=== PATIENT | male | born 1960 | race Caucasian/White ===

== ENCOUNTER → 2017-05-22 | Outpatient (CLI) | payer OTHER ==
[~2017-05-22] MED LIST: ASACOL HD; ASACOL HD800 M1 PO; ENTOCORT EC3 MG PO; FLOMAX 0.4MG C0.4 MG PO; IMURAN50 MG PO; LISINOPRIL 5MG T5 MG PO; LISINOPRIL40 MG; LORTAB 5/500 501 TAB PO; LOSARTAN POTAS100 MG PO; MEDROL 4MG. DOSE4 MG PO; METFORMIN 500M500 M1 PO; NORCO 325 MG-51 TAB PO; PERCOCET 325 MG1 TA3 PO; PERCOCET 5/3251 EACH PO; ZANTAC 300300 M1 PO
--- NOTE | 2017-05-22 16:43 | RADIOLOGY REPORT PS360 ---
US [id number] HISTORY: Right-sided flank pain with hematuria RENAL STONE ORDERING PHYSICIAN: Desirae Moreira MD PATIENT AGE: 57 years COMPARISON: None FINDINGS: RIGHT KIDNEY:Unremarkable. Normal size and echogenicity. No hydronephrosis The right kidney measures 11 x 5.5 x 7 cm LEFT KIDNEY: No hydronephrosis. Left kidney measures 12 x 6 x 6 cm with a few flecks of hyperechogenicity which could be due to nonobstructing calculi. There is a 12 mm cyst in the upper pole the left kidney. OTHER FINDINGS: No other pertinent findings IMPRESSION: 1. No hydronephrosis. 2. Possible left nephrolithiasis. 3. 12 mm left renal cyst
== END ==
LOC: RAD 07:55
DX: N20.0 Calculus of kidney (principal)

== ENCOUNTER 2017-05-26 15:57 | Emergency (ER) | payer OTHER ==
[~2017-05-26] VITALS: Ht 177.8 cm; Wt 90.7 kg
[~2017-05-26 15:57] MED LIST changes: -ASACOL HD; -LISINOPRIL40 MG; -NORCO 325 MG-51 TAB PO
[2017-05-26 16:13] LABS: URINE BILIRUBIN - DIPSTICK NEGATIVE (NEG); URINE BLOOD 3+ (NEG)
--- OUTSIDE RECORDS SUMMARY | 2017-05-26 16:15 | External Medical Summary Rpt | CCD ---
Author Author , TROY Organization [employer] Address Unknown Phone [email or web address] Care Team Providers Care Drying Can Worker Name Role Phone Keshia Moreira MD, Unavailable Unavailable Keshia Larry MD, Unavailable Unavailable Karla Tomlinson MD, Unavailable Unavailable Alfred Tomlinson MD Purpose Continuity of Care Document - 11-29-2012 through 2016 Problems Code Diagnosis DOS Provider Status 401.9 401.9 07-22-2013 [place] HYPERTENSIO [facility] N NOS Hospital 555.9 555.9 07-22-2013 [facility] ENTERITIS [facility] NOS 786.59 786.59 07-22-2013 [place] CHEST PAIN [facility] 788.0 788.0 RENAL 12-01-2012 [place] COLIC [facility] 592.0 592.0 11-29-2012 [place] CALCULUS OF [facility] 724.2 Allergies, Adverse Reactions, Alerts Type Drug Allergy Adverse Reaction to Substance Substance Reaction Severity Penicillin Unknown Unknown Medications Na ND Rx Da Fi Fi Am Da Di Ph RX Ph St me C No te ll ll ou ys ag ar # ys at rm s nt no ma ic us Or Da si cy ia de te s n re d 66 01 0 No PI 55 -2 RI 30 9- Lo N 00 20 ng 32 10 14 er 5 1 MG Ac ti TA ve BL ET Sa 63 01 0 No li 80 -2 ne 70 8- Lo 10 20 ng Fl 07 14 er us 5 h Ac 10 ti ML ve Sy ri ng e NI 00 01 0 No TR 07 -2 OS 10 8- Lo TA 41 20 ng T 81 14 er 0. 3 4 Ac MG ti ve TA BL ET SL Ib 62 01 0 No up 58 -2 ro 40 8- Lo fe 74 20 ng n 60 14 er 40 1 0M Ac G ti Ta ve bl et PA 01 1 No TI -2 EN 8- Lo T' 20 ng S 14 er OW N Ac HO ti ME ve ME DS TE 51 01 1 No MA 07 -2 ZE 90 8- Lo PA 41 20 ng M 92 14 er 30 0 Ac MG ti ve CA PS UL E KE 00 06 0 No TO 40 -1 RO 93 0- Lo LA 79 20 ng C 60 13 er 60 1 Ac MG ti /2 ve ML AL SO 00 06 0 No DI 40 -0 UM 97 8- Lo 98 20 ng CH 30 13 er LO 9 RI Ac DE ti ve 0. 9% SO ALMA TI ON Mo 00 06 0 No rp 40 -0 hi 91 8- Lo ne 25 20 ng 83 13 er 4M 0 G/ Ac Ml ti ve Sy ri ng e ON 00 06 0 No DA 64 -0 NS 16 8- Lo ET 08 20 ng RO 02 13 er N 5 HC Ac L ti 4 ve MG /2 ML AL Sa 63 06 0 No li 80 -0 ne 70 8- Lo 10 20 ng Fl 07 13 er us 5 h Ac 10 ti ML ve Sy ri ng e OX 00 06 0 No YC 40 -0 OD 60 8- Lo ON 51 20 ng E- 26 13 er AC 2 ET Ac AM ti IN ve OP HE N 5- 32 5 TA 51 06 0 No MS 07 -0 UL 90 8- Lo OS 29 20 ng IN 42 13 er 0 HC Ac L ti 0. ve 4 MG CA PS UL E Vital Signs 07-22-2013 11:30 Name Value Interpretat Reference Comment ion Range Body 98.3 [degF] Temperature BP 96 mm[Hg] Diastolic BP Systolic 157 mm[Hg] Heart 92 /min Rate/Pulse Respiratory 18 /min Rate 07-22-2013 08:00 Name Value Interpretat Reference Comment ion Range O2% 97 % 07-21-2013 16:17 Name Value Interpretat Reference Comment ion Range Height 177.80 cm Weight 92.080 kg Measured 07-21-2013 13:09 Name Value Interpretat Reference Comment ion Range Body 98.8 [degF] Temperature BP 65 mm[Hg] Diastolic BP Systolic 169 mm[Hg] Heart 100 /min Rate/Pulse O2% 98 % Respiratory 20 /min Rate Weight 0 [oz_av] Measured 12-01-2012 09:34 Name Value Interpretat Reference Comment ion Range Body 98.5 [degF] Temperature BP 84 mm[Hg] Diastolic BP Systolic 128 mm[Hg] Heart 93 /min Rate/Pulse O2% 97 % Respiratory 20 /min Rate 12-01-2012 09:28 Name Value Interpretat Reference Comment ion Range BP 91 mm[Hg] Diastolic BP Systolic 128 mm[Hg] Heart 96 /min Rate/Pulse O2% 97 % Respiratory 20 /min Rate 11-29-2012 16:36 Name Value Interpretat Reference Comment ion Range BP 78 mm[Hg] Diastolic BP Systolic 127 mm[Hg] Heart 81 /min Rate/Pulse O2% 98 % Respiratory 16 /min Rate 11-29-2012 15:23 Name Value Interpretat Reference Comment ion Range Body 98.0 [degF] Temperature 11-29-2012 14:47 Name Value Interpretat Reference Comment ion Range Body 98.0 [degF] Temperature BP 88 mm[Hg] Diastolic BP Systolic 131 mm[Hg] Heart 106 /min Rate/Pulse O2% 99 % Respiratory 16 /min Rate Results Labs Lab Lab Date Result Refere Interp Status Commen Order Detail nces retati t Range on BASIC METABOLIC PANEL (07-22-2013 06:15) Glucose 114 74-106 complet 014 mg/dL ed Bld-mCn 06:15 c BUN 15 7-18 complet Bld-mCn 014 mg/dL ed c 06:15 Creat 0.9 0.8-1.3 complet SerPl-m 014 mg/dL ed Cnc 06:15 Creat 121 50-200 complet Cl 014 ML/MIN ed predict 06:15 ed SerPl C-G-vRa te GFR/BSA 88 Greater complet .pred 014 ML/MIN than ed SerPl 06:15 60 Schwart z-vRate Sodium 139 136-145 complet SerPl-s 014 mmoL/L ed Cnc 06:15 Potassi 4.2 3.5-5.1 complet um 014 mmoL/L ed SerPl-s 06:15 Cnc Chlorid 104 98-107 complet e 014 mmoL/L ed SerPl-s 06:15 Cnc CO2 31 21.0-32 complet SerPl-s 014 mmoL/L .0 ed Cnc 06:15 Calcium 8.6 8.5-10. complet 014 mg/dL 1 ed SerPl-m 06:15 Cnc CBC with AUTO DIFF (07-22-2013 06:15) WBC # 07-22-2 5.8 4.8-10. complet Bld 014 K/MM3 8 ed Auto 06:15 RBC # 07-22-2 5.14 4.6-6.2 complet Bld 014 M/mm3 ed Auto 06:15 Hgb 15.4 14.1-18 complet Bld-mCn 014 g/dL .0 ed c 06:15 Hct Fr 44.6 % 42.0-52 complet Bld 014 .0 ed 06:15 MCV RBC 86.8 fl 82.2-97 complet 014 .8 ed 06:15 MCH RBC 29.9 pg 27-31.2 complet Qn 014 ed Auto 06:15 MEAN 34.4 31.8-35 complet CORPUSC 014 g/dl .4 ed ULAR 06:15 HGB CONC RDW RBC 13.7 % 11.5-17 complet Auto 014 .5 ed 06:15 Platele 252 142-424 complet t Bld 014 K/mm3 ed Ql 06:15 Manual MEAN 7.7 fl 7.4-10. complet PLATELE 014 4 ed T 06:15 VOLUME Granulo 73.8 % 37.0-80 complet cytes 014 .0 ed Fr Bld 06:15 Auto LYMPH % 16.3 % 10-50 complet 014 ed 06:15 Monocyt 6.7 % 1.7-9.3 complet es Fr 014 ed Bld 06:15 Auto Eosinop 2 2.6 % 0.1-12. complet hil Fr 014 0 ed Bld 06:15 Auto Basophi 07-22-2 0.7 % 0.1-2.0 complet ls Fr 014 ed Bld 06:15 Auto Granulo 07-22-2 4.3 1.3-8.0 complet cytes # 014 K/mm3 ed Bld 06:15 Auto Lymphoc 07-22-2 0.9 0.7-4.5 complet ytes Fr 014 K/mm3 ed Bld 06:15 Auto Monocyt 0.4 0.1-1.0 complet es # 014 K/mm3 ed Bld 06:15 Auto Eosinop 0.2 0.0-0.4 complet hil # 014 K/mm3 ed Bld 06:15 Auto Basophi 0.0 0-0.2 complet ls # 014 K/MM3 ed Bld 06:15 Auto GLYCOHEMOGLOBIN (A1c) (07-22-2013 06:15) HEMOGLO 6.3 % 0.0-7.0 complet BIN A1C 014 ed 06:15 TROPONIN I (07-21-2013 21:50) TROPONI Less 0.00-0. complet N I 014 than 06 ed 21:50 0.02 ng/mL URINALYSIS/COMPLETE (07-21-2013 14:12) URINE YELLOW YELLOW complet COLOR 014 ed 14:12 URINE Clear CLEAR complet APPEARA 014 ed NCE 14:12 URINE TRACE NEG complet GLUCOSE 014 ed - 14:12 DIPSTIC K URINE NEGATIV NEG complet BILIRUB 014 E ed IN - 14:12 DIPSTIC K URINE NEGATIV NEG complet KETONE 014 E mg/dL ed 14:12 URINE 1.015 1.005-1 complet SPECIFI 014 UNK .030 ed C 14:12 GRAVITY URINE NEGATIV NEG complet BLOOD 014 E ed 14:12 URINE 7.0 UNK 5.0-8.5 complet PH 014 ed 14:12 URINE NEGATIV NEG complet PROTEIN 014 E mg/dL ed - 14:12 DIPSTIC K URINE 0.2 NEG complet UROBILI 014 E.U./dL ed NOGEN - 14:12 DIPSTIC K URINE NEGATIV NEG complet NITRATE 014 E ed - 14:12 DIPSTIC K URINE NEGATIV NEG complet LEUK 014 E ed ESTERAS 14:12 E URINE OCC 0 complet RBC 014 rbc/hpf ed 14:12 URINE OCC O complet WBC 014 wbc/hpf ed 14:12 URINE TRACE O complet BACTERI 014 ed A 14:12 COMPREHENSIVE METABOLIC PANEL (07-21-2013 14:00) Glucose 155 74-106 complet 014 mg/dL ed Bld-mCn 14:00 c BUN 14 7-18 complet Bld-mCn 014 mg/dL ed c 14:00 Creat 1.0 0.8-1.3 complet SerPl-m 014 mg/dL ed Cnc 14:00 Creat 107 50-200 complet Cl 014 ML/MIN ed predict 14:00 ed SerPl C-G-vRa te GFR/BSA 78 Greater complet .pred 014 ML/MIN than ed SerPl 14:00 60 Schwart z-vRate Sodium 139 136-145 complet SerPl-s 014 mmoL/L ed Cnc 14:00 Potassi 3.7 3.5-5.1 complet um 014 mmoL/L ed SerPl-s 14:00 Cnc Chlorid 104 98-107 complet e 014 mmoL/L ed SerPl-s 14:00 Cnc CO2 27 21.0-32 complet SerPl-s 014 mmoL/L .0 ed Cnc 14:00 Calcium 8.9 8.5-10. complet 014 mg/dL 1 ed SerPl-m 14:00 Cnc Prot 7.2 6.4-8.2 complet SerPl-m 014 gm/dL ed Cnc 14:00 Albumin 3.9 3.4-5.0 complet 014 gm/dL ed SerPl-m 14:00 Cnc Globuli 3.3 1.3-3.2 complet n 014 gm/dL ed Ser-mCn 14:00 c Albumin 1.2 UNK 1.1-1.8 complet /Glob 014 ed SerPl-m 14:00 Rto Bilirub 0.7 0.2-1.0 complet 014 mg/dL ed SerPl-m 14:00 Cnc AST 19 U/L 15-37 complet SerPl-c 014 ed Cnc 14:00 ALT 45 U/L 12-78 complet SerPl-c 014 ed Cnc 14:00 ALP 90 U/L 50-136 complet SerPl-c 014 ed Cnc 14:00 CBC with AUTO DIFF (07-21-2013 14:00) WBC # 07-21-2 6.7 4.8-10. complet Bld 014 K/MM3 8 ed Auto 14:00 RBC # 07-21- 5.10 4.6-6.2 complet Bld 014 M/mm3 ed Auto 14:00 Hgb 15.1 14.1-18 complet Bld-mCn 014 g/dL .0 ed c 14:00 Hct Fr 43.6 % 42.0-52 complet Bld 014 .0 ed 14:00 MCV RBC 85.5 fl 82.2-97 complet 014 .8 ed 14:00 MCH RBC 29.7 pg 27-31.2 complet Qn 014 ed Auto 14:00 MEAN 34.7 31.8-35 complet CORPUSC 014 g/dl .4 ed ULAR 14:00 HGB CONC RDW RBC 13.7 % 11.5-17 complet Auto 014 .5 ed 14:00 Platele 250 142-424 complet t Bld 014 K/mm3 ed Ql 14:00 Manual MEAN 7.5 fl 7.4-10. complet PLATELE 014 4 ed T 14:00 VOLUME Granulo 84.3 % 37.0-80 complet cytes 014 .0 ed Fr Bld 14:00 Auto LYMPH % 10.2 % 10-50 complet 014 ed 14:00 Monocyt 3.4 % 1.7-9.3 complet es Fr 014 ed Bld 14:00 Auto Eosinop 1.6 % 0.1-12. complet hil Fr 014 0 ed Bld 14:00 Auto Basophi 0.6 % 0.1-2.0 complet ls Fr 014 ed Bld 14:00 Auto Granulo 5.6 1.3-8.0 complet cytes # 014 K/mm3 ed Bld 14:00 Auto Lymphoc 07-21-2 0.7 0.7-4.5 complet ytes Fr 014 K/mm3 ed Bld 14:00 Auto Monocyt 07-21-2 0.2 0.1-1.0 complet es # 014 K/mm3 ed Bld 14:00 Auto Eosinop 2 0.1 0.0-0.4 complet hil # 014 K/mm3 ed Bld 14:00 Auto Basophi 2 0.0 0-0.2 complet ls # 014 K/MM3 ed Bld 14:00 Auto Glucose BldC Glucomtr[facility] (07-21-2013 13:27) Glucose 07-21-2 181 70-110 complet BldC 014 mg/dl ed Glucomt 13:27 r-nc URINALYSIS/COMPLETE (12-01-2012 08:50) URINE -10-2 YELLOW YELLOW complet COLOR 013 ed 08:50 URINE 06-10-2 CLEAR CLEAR complet APPEARA 013 ed NCE 08:50 URINE 06-10-2 NEGATIV NEG complet GLUCOSE 013 E ed - 08:50 DIPSTIC K URINE 06-10-2 NEGATIV NEG complet BILIRUB 013 E ed IN - 08:50 DIPSTIC K URINE 06-10-2 NEGATIV NEG complet KETONE 013 E mg/dL ed 08:50 URINE 06-10-2 1.015 1.005-1 complet SPECIFI 013 UNK .030 ed C 08:50 GRAVITY URINE -10-2 3+ NEG complet BLOOD 013 ed 08:50 URINE 06-10-2 6.0 UNK 5.0-8.5 complet PH 013 ed 08:50 URINE 06-10-2 NEGATIV NEG complet PROTEIN 013 E mg/dL ed - 08:50 DIPSTIC K URINE 06-10-2 0.2 NEG complet UROBILI 013 E.U./dL ed NOGEN - 08:50 DIPSTIC K URINE 06-10-2 NEGATIV NEG complet NITRATE 013 E ed - 08:50 DIPSTIC K URINE 06-10-2 NEGATIV NEG complet LEUK 013 E ed ESTERAS 08:50 E URINE 06-10-2 20-50 0 complet RBC 013 rbc/hpf ed 08:50 URINE 06-10-2 OCC OCC complet SQUAMOU 013 #/hpf ed S CELLS 08:50 URINALYSIS/COMPLETE (11-29-2012 16:00) URINE 11-29-2 YELLOW YELLOW complet COLOR 013 ed 16:00 URINE 11-29-2 CLEAR CLEAR complet APPEARA 013 ed NCE 16:00 URINE 11-29-2 NEGATIV NEG complet GLUCOSE 013 E ed - 16:00 DIPSTIC K URINE 11-29-2 NEGATIV NEG complet BILIRUB 013 E ed IN - 16:00 DIPSTIC K URINE 11-29-2 NEGATIV NEG complet KETONE 013 E mg/dL ed 16:00 URINE 11-29-2 1.025 1.005-1 complet SPECIFI 013 UNK .030 ed C 16:00 GRAVITY URINE 11-29-2 3+ NEG complet BLOOD 013 ed 16:00 URINE 11-29-2 5.5 UNK 5.0-8.5 complet PH 013 ed 16:00 URINE 11-29-2 NEGATIV NEG complet PROTEIN 013 E mg/dL ed - 16:00 DIPSTIC K URINE 11-29-2 0.2 NEG complet UROBILI 013 E.U./dL ed NOGEN - 16:00 DIPSTIC K URINE 11-29-2 NEGATIV NEG complet NITRATE 013 E ed - 16:00 DIPSTIC K URINE 11-29-2 TRACE NEG complet LEUK 013 ed ESTERAS 16:00 E URINE 11-29-2 TNTC 0 complet RBC 013 rbc/hpf ed 16:00 URINE 11-29-2 3-5 O complet WBC 013 wbc/hpf ed 16:00 URINE 11-29-2 3-5 OCC complet SQUAMOU 013 #/hpf ed S CELLS 16:00 Encounters Encounter Start End Date Code Location Performer Type Date Inpatient DANIA Moreira MD (IN) 4 13:43 4 11:30 [facility] OLYA Tomlinson MD (ER) 3 08:45 3 09:37 [facility] Emergency OLYA Larry MD (ER) 3 14:32 3 16:38 [facility]
--- OUTSIDE RECORDS SUMMARY | 2017-05-26 16:15 | External Medical Summary Rpt | CCD ---
Author Author , TROY Organization [employer] Address Unknown Phone [email or web address] Providers Care Precision Jig Grinder Name Role Phone Keshia Moreira MD, Unavailable Unavailable Keshia Larry MD, Unavailable Unavailable Karla Tomlinson MD, Unavailable Unavailable Alfred Tomlinson MD Purpose Continuity of Care Document - 11-29-2012 through 2016 Problems Code Diagnosis DOS Provider Status 401.9 401.9 07-22-2013 [place] HYPERTENSIO [facility] 555.9 555.9 07-22-2013 [facility] ENTERITIS [facility] NOS 786.59 786.59 07-22-2013 [place] CHEST PAIN [facility] 788.0 788.0 RENAL 12-01-2012 [place] COLIC [facility] 592.0 592.0 11-29-2012 [place] CALCULUS OF [facility] 724.2 Allergies, Adverse Reactions, Alerts Type [...] K/MM3 ed Bld 14:00 Auto Glucose BldC [facility]tr[facility] (07-21-2013 13:27) Glucose 07-21-2 181 70-110 complet [...] Moreira MD (IN) 4 13:43 4 11:30 [facility] Emergency OLYA Tomlinson MD (ER) 3 08:45 3 09:37 [facility] Emergency OLYA Larry MD (ER) 3 14:32 3 16:38 [facility]
--- OUTSIDE RECORDS SUMMARY | 2017-05-26 16:16 | External Medical Summary Rpt | CCD ---
Author Author [employer] Organization [employer] Address Unknown Phone Unavailable Purpose Continuity of Care Document - through 2016
--- OUTSIDE RECORDS SUMMARY | 2017-05-26 16:16 | External Medical Summary Rpt | CCD ---
Author Author , TROY Organization [employer] Address Unknown Phone [email or web address] Immunization Name Date Rout CVX Reac Dose Comm Prov Is Faci e tion ent ider Refu lity Give sed n Infl 10-0 Intr 150 0.5 Hist [facility] No [facility] 6-20 amus mL oric NIKKI AID0 a 17 cula al AYMA 3914 Quad r Info N Inj rmat ion - Sour ce Unsp ecif ied Infl 10-1 Intr 140 0.5 Hist K[facility] No [facility] 9-20 amus mL oric NIKKI AID0 a, 16 cula al AYMA 3914 P-Fr r Info N ee rmat ion - Sour ce Unsp ecif ied
--- OUTSIDE RECORDS SUMMARY | 2017-05-26 16:16 | External Medical Summary Rpt | CCD ---
Author Author , TROY Organization [employer] Address Unknown Phone [email or web address] Immunization Name Date Rout CVX Reac Dose [...]
--- OUTSIDE RECORDS SUMMARY | 2017-05-26 16:16 | External Medical Summary Rpt ---
Author Author TROY Vásquez, [employer] Organization [employer] Address Unknown Phone Unavailable
[2017-05-26 16:19] LABS: URINE SQUAMOUS CELLS OCC #/hpf (OCC)
[2017-05-26 16:24] LABS: LYMPH # 1.2 K/mm3 (0.7-4.5); LYMPH % 13.6 % (10-50)
[2017-05-26] MEDS ORDERED: NORCO 325 MG-51 TAB PO (17:47)
[2017-05-26] MEDS ORDERED: FLOMAX 0.4MG C0.4 MG PO (17:48)
--- NOTE | 2017-05-26 17:49 | Emergency Room Report ---
History of Present Illness Time Seen by [facility] Presenting Problem in Triage Pt arrived:Walked Presenting Problem:PT C/O RT FLANK PAIN. PT REPORTS HX OF KIDNEY STONES Onset of symptoms date/time:/ or onset unknown for:MEDICAL HX UNKNOWN Treatment Prior to Arrival: [employer]IC Provided by: Sepsis Risk Assessment: Temp: 98.7 B/P: 158/97 MAP: 117 Pulse: 95 Resp: 20 Recent fever? N Clinical Suspician of Infection? N Mental Status: 1 - Regular (Normal Baseline) Sepsis Risk:Possible Sepsis Risk Have you (or family members/close friends) recently traveled outside the [place]? N If Yes, where/when: Have you had exposure to infectious disease within the past month? N TB? Other? Specify: Source patient, RN notes reviewed, family, old records Exam Limitations no limitations Comment acute onset of rt flank pain with hx of kidney stone which started today Cardiac Chest Pain Chest pain indicative of cardiac No Timing/Duration this evening Severity moderate ALLERGIES Coded Allergies: Penicillins (Mild, 05/26/17) Home Medications Active Scripts Methylprednisolone (Medrol Dose Liam) 4 MG PO UD #1 LIAM Prov: 02/26/15 RANITIDINE HCL (Zantac) 300 MG PO DAILY #15 TAB Ref 1 Prov: 02/26/15 Oxycodone 5MG/[id number] (Oxycodone-Acetaminophen 5-325) 1 TAB PO Q12HP PRN PAIN MANAGEMENT #6 TAB Prov: 02/27/15 Reported Medications Losartan Potassium (Losartan 100MG) 50 MG PO DAILY Mesalamine (ASACOL HD 800MG (generic)) 800 MG PO DAILY Metformin HCl (Metformin) 500 MG PO DAILY #30 History Medical History General CAD? No Angina: No IN: No Hypertension? Yes Hyperlipidemia? Yes CHF? No DVT? No PE? No COPD? No Asthma? No Anemia? No GERD? No Gastric ulcers? No GI Bleed? No Hernia? No Thyroid Problems? No Hypothyroidism? No CVA? No Seizures? No Diabetes? Yes Insulin Dependent: No Insulin Pump: No Home FSBS? No Renal Insuffiency? No End Stage Renal Disease? No UTI? No Stones? Yes BPH? No GB Disease: No Nephritic Syndrome? No Asplenia? No Hepatitis? No Sickle Cell Disease? No Arthritis? No Migraines? No Cataracts? No Glaucoma? No MRSA? No HIV? No TB? No Anxiety? No Depression? No Cancer? No More? No Immunization Hx DT/Tetanus > 10 Years Ago Flu 2013-14FSN Pneumonia Received In Past Surgical Hx Previous Surgery?N VASCECTOMY BACK SURGERY Family History Family Hx Diabetes Yes CAD No Hypertension Yes Hyperlipidemia Yes Cancer No TB No Social History Smoking Hx Smoker: Former Smoker Tobacco: Yes Type Cigarettes Alcohol Alcohol: No Drugs none Review of Systems All Other Systems Reviewed and Negative Constitutional denies fever Eyes denies drainage ENT denies: ear discharge, epistaxis, throat pain. Respiratory denies cough, denies shortness of breath, denies wheezing Cardiovascular denies chest pain, denies syncope Gastrointestinal see HPI, nausea, denies vomiting Genitourinary see HPI. denies: dysuria, frequency, hesitancy, hematuria, scrotal/testicular pain. Musculoskeletal denies joint swelling Skin denies rash Psychiatric/Neurological denies headache, denies seizure Physical Exam Vital Signs Vital Signs Date Time Temp Pulse Resp B/P Pulse O2 O2 Flow FiO2 Ox Delivery Rate 05/26 1617 20 05/26 1612 98.7 95 20 158/97 97 - WBC >12,000 or <4,000 or 10% bands? 2 or more SIRS Criteria Met? B/P:158/97 MAP:117 Creatinine >2.0? UA output<0.5ml/kg/hr for 2 hrs? Platelet count >100,000? Lactate >2.0mmol/1? INR >1.2 or PTT > than 60 sec? Evidence of Organ Dysfunction? Provider documented clinical suspician of infection? N Sepsis Criteria Count: 2 Sepsis Risk: Possible Sepsis Risk General Appearance no apparent distress Eye Exam - bilateral eye PERRL, bilateral eye EOMI Ear, Nose, Throat normal ENT inspection Neck supple Respiratory Status No: respiratory distress. Cardiovascular regular rate/rhythm Peripheral Pulses Pulses normal Yes Gastrointestinal soft Extremities normal inspection Strength 4 Upper Ext (L), 4 Upper Ext (R), 4 Lower Ext (L), 4 Lower Ext (R) Neurologic alert, trip motor operator II-XII nml as tested, no motor/sensory deficits Reflexes Reflexes normal No Mental status normal mood/affect Skin no rash cons.w/shingles Medical Decision Making LABS/Meds/Orders Pt receiving controlled substance in ED? No Results/Orders Laboratory Tests 05/26/17 1615: Sodium 139, Potassium 4.1, Chloride 105, Carbon Dioxide 28, BUN 16, Creatinine 1.5 H, Estimated Creat Clear 68, Estimated GFR (MDRD) 48, Glucose 126 H, Calcium 9.3, Total Bilirubin 0.6, AST 24, ALT 55, Alkaline Phosphatase 87, Total Protein 6.9, Albumin 3.8, Globulin 3.1, Albumin/Globulin Ratio 1.2, WBC 9.0, RBC 5.06, Hgb 15.0, Hct 43.3, MCV 85.7, RDW 12.4, Plt Count 252, MPV 7.2 L, Gran % 77.0, Gran # 6.9, Lymphocytes % 13.6, Monocytes % 6.0, Eosinophils % 2.6, Basophils % 0.8, Lymphocytes # 1.2, Monocytes # 0.5, Eosinophils # 0.2, Basophils # 0.1, PUBS MCHC 34.7, MCH 29.7 05/26/17 1600: Urine Color YELLOW, Urine Appearance CLEAR, Urine pH 7.0, Ur Specific Rena Lara 1.010, Urine Protein NEGATIVE, Urine Ketones NEGATIVE, Urine Blood 3+ H, Urine Nitrate NEGATIVE, Urine Bilirubin NEGATIVE, Urine Urobilinogen 0.2, Ur Leukocyte Esterase NEGATIVE, Urine RBC 10-20, Ur Squamous Epith Cells OCC, Urine Glucose NEGATIVE Current Medication Orders Sig/Jason Start time Last Medication Dose Route Stop Time Status Admin Hyoscyamine Sulfate 0.125 MG ONCE ONE 05/26 1745 DC PO 05/26 1746 Morphine Sulfate 4 MG ONCE ONE 05/26 1745 DC IV 05/26 1746 Ondansetron HCl 4 MG ONCE ONE 05/26 1745 DC IV 05/26 1746 Tamsulosin HCl 0.4 MG ONCE ONE 05/26 1745 DC PO 05/26 1746 Hyoscyamine Sulfate 0 .STK-MED ONE 05/26 1742 DC .ROUTE Tamsulosin HCl 0 .STK-MED ONE 05/26 1742 DC PO Ondansetron HCl 0 .STK-MED ONE 05/26 1737 DC .ROUTE Morphine Sulfate 0 .STK-MED ONE 05/26 1736 DC .ROUTE Ketorolac 0 .STK-MED ONE 05/26 1616 DC Tromethamine .ROUTE Sodium Chloride 1,000 ML .STK-MED ONE 05/26 1616 DC IV Ketorolac 30 MG ONCE ONE 05/26 1615 DC 05/26 Tromethamine IV 05/26 1616 1617 Sodium Chloride 10 ML PRN PRN 05/26 1615 AC IV 05/27 1606 Sodium Chloride 1,000 ML .Q1H1M 05/26 1615 DC 05/26 IV 05/26 1715 1618 Sodium Chloride 10 ML PRN PRN 05/26 1615 AC IV 05/27 1607 Orders Procedure Date/time Status DIET-NOTHING BY MOUTH 05/[address] ABD & PELVIS W/O CONTRAST 05/[address] ABD/PELVIS REQ 05/26 1608 Complete IV SALINE LOCK 05/26 1608 Active URINALYSIS/COMPLETE 05/26 1608 Complete CBC WITH AUTO DIFF 05/26 1608 Complete CHEM 12 PROFILE 05/26 1608 Complete XRAY/CT/US XRAY/CT/US CT abdomen, pelvis CT interpretation by discussed w/radiologist Time results known: 1745 CT Results abnormal (see report) Departure Departure Time of Disposition 174 Disposition DC Home or Self Care(routine) Clinical Impression Primary Impression: Renal colic on right side Condition STABLE Referrals Christo Brennan MD Patient Instructions DI for Kidney Stones Additional Instructions fluids and see pcp for follow up and call dr brennan Discharge Counseling Counseled pt/family regarding diagnosis, test results, medications/RX, follow up needs Prescriptions Current Visit Scripts HYDROCODONE/ACETAMINOPHEN ([place] 5-325 Tablet) 1 TAB PO Q6HP PRN pain #7 TAB TAMSULOSIN HCL (Flomax 0.4MG) 0.4 MG PO QHS #10 CAP ED Critical Care Critical Care No at [id number]
[2017-05-26 19:17] VITALS: BP 129/93
--- NOTE | 2017-05-26 19:48 | RADIOLOGY REPORT PS360 ---
CT ABD PELVIS W/O CONTRAST Ordering Physician: Lm Miller MD Patient Age: 57 years: Male HISTORY: BACK PAIN; R/O KIDNEY STONES TECHNIQUE: Helical CT scanning performed through the COMPARISON :Previous CT abdomen pelvis 12/11/2012. FINDINGS Lung bases. No active disease mild dependent atelectasis minor scarring posterior right lung base. . Also minimal pleural parenchymal scarring inferior margin of lingula. Abdomen/pelvis. Lack of oral and IV contrast decreases sensitivity. Liver. Diffuse fatty changes. No focal lesions identified. Gallbladder. Partially contracted no calcified stones no biliary ductal dilatation. Spleen unremarkable. Adrenals appear satisfactory. Stable. Kidneys. Right kidney. Mild hydronephrosis. Mild/moderate dilatation of the entire right ureter down to the right UVJ where we encounter a less than 3 mm transverse x 6 mm length stone on the verge of passing through the right UVJ. Only minor stranding is seen about the distal right ureter. Left kidney. Only a tiny faint 2 mm mm calculus barely evident the lower pole calyx axial image 58.. . Aorta normal caliber. Scattered small left para-aortic nodes appears stable. A generous stool at the right colon. Most of the gas transverse and left colon. Fatty wall thickening of the rectosigmoid. Nonspecific but can be reflection of chronic inflammatory changes or merely distribution of a tissue. Unchanged since 2012. Appendix not discretely visualized but I see no evidence to suggest appendicitis. . Fluid-filled moderately distended stomach. Small bowel with moderate fluid but no dilatation. L5/S1 bilateral pars defects with mild grade 1 anterior listhesis L5 on S1. L3/4 with marked degenerative disc space narrowing diffuse posterior hypertrophic ridging &, spondylotic disc bulge. IMPRESSION: 1. Obstructive uropathy on the right. Dilatation of the right ureter and mild hydronephrosis due to a 3 mm transverse x 6 mm length stone at right UVJ. 2.Other observations in text.
[2017-05-28] MEDS ORDERED: ASACOL HD (15:55)
[2017-05-28] MEDS ORDERED: LISINOPRIL40 MG (15:57)
== END 2017-05-26 19:17 | disposition home or self-care (01) ==
LOC: ER 15:57
PROVIDERS: Emergency Medicine
DX: N13.2 Hydronephrosis with renal and ureteral calculous obstruction (principal); Z87.442 Personal history of urinary calculi; Z88.0 Allergy status to penicillin; I10 Essential (primary) hypertension; E78.5 Hyperlipidemia, unspecified; E11.9 Type 2 diabetes mellitus without complications; Z87.891 Personal history of nicotine dependence
CPT/HCPCS: J2405